=== PATIENT | female | born 1970 | race Two or more races ===

== ENCOUNTER 2023-12-03 06:00 | Day surgery (SDC) | payer OTHER ==
[2023-11-26 10:38] LABS: HEMATOCRIT 36.4 % (36.0-45.00); HEMOGLOBIN 12.3 g/dL (12.0-15.00); MEAN CELL VOLUME 87.9 fL (80.00-100.00); MEAN CORPUSCULAR HEMOGLOBIN 29.6 pg (27.00-32.0); MEAN CORPUSCULAR HGB CONC 33.6 g/dl (32.0-36.0); PLATELET COUNT 289 K/uL (150-450); RED BLOOD COUNT 4.14 M/uL (4.00-6.00)
[2023-11-26 10:55] LABS: URINE APPEARANCE Clear; URINE BILIRRUBIN Negative (NEGATIVE); URINE BLOOD Negative; URINE COLOR Yellow; URINE GLUCOSE Negative (NEGATIVE); URINE KETONE Negative (NEGATIVE); URINE LEUKOCYTE Small; URINE NITRATE Negative; URINE PROTEIN Negative (NEGATIVE); URINE UROBILINOGEN 0.2 E.U./dl
[2023-11-26 11:01] LABS: URINE BACTERIA 26.4 uL (0.0-1933); URINE EPITHELIAL CELLS 12.5 uL (0.0-38.8); URINE RBC 20.6 uL (0.0-20.8)
[2023-11-26 11:10] LABS: URINE CAST 0.15 uL (0.0-1.40)
[2023-11-26 11:14] LABS: INR 1.01; PARTIAL THROMBOPLASTIN TIME 37.4 SECONDS (22.0-34.0); PROTHROMBIN TIME 10.6 SECONDS (9.0-11.5)
[2023-11-26 11:20] LABS: ALBUMIN 3.7 gm/dL (3.4-5.0); BILIRUBIN TOTAL 0.7 mg/dL (0.3-1.2); CALCIUM 9.6 mg/dL (8.5-10.1); CREATININE SERUM 0.57 mg/dL (0.55-1.02); GFR 111.82; GLOBULINA 3.8 G/DL (2.4-3.5); POTASSIUM 4.37 mEq/L (3.5-5.1); TOTAL PROTEIN 7.5 gm/dL (6.4-8.2)
[~2023-12-03 06:00] MED LIST: COZAAR25 MG PO; PAMELOR25 MG PO; PAXIL CR37.5 MG PO; PEPCID40 MG PO; SEROQUEL25 MG PO; WELLBUTRIN SR150 MG PO; buspar PO
[2023-12-03] MEDS ORDERED: CEFAZOLIN SODIUM 1,000 MG VIAL IV ONE (10:30)
[2023-12-03] MEDS ORDERED: LIDOCAINE HCL 1%/EPINEPHRINE 20ML VIAL IJ ONE (10:30)
[2023-12-03] MEDS ORDERED: BUPIVACAINE HCL 30 ML VIAL IV ONE (10:30)
[2023-12-03] MEDS ORDERED: CEPHALEXIN500 MG PO (12:22)
[2023-12-03] MEDS ORDERED: NEURONTIN300 MG PO (12:22)
== END 2023-12-03 14:00 | disposition home or self-care (01) ==
LOC: CIR.AMB 06:00
PROVIDERS: ATTEND Surgery
DX: R15.9 Full incontinence of feces (principal); I10 Essential (primary) hypertension; Z88.5 Allergy status to narcotic agent
CPT/HCPCS: 64581; 95972; C1778

== ENCOUNTER 2023-12-17 08:30 | Day surgery (SDC) | payer OTHER ==
[~2023-12-17 08:30] MED LIST changes: +CEPHALEXIN500 MG PO; +NEURONTIN300 MG PO
[2023-12-17] MEDS ORDERED: CEFAZOLIN SODIUM 1,000 MG VIAL ONE (10:04)
[2023-12-17] MEDS ORDERED: BUPIVACAINE HCL/MPF 0.5% 30ML VIAL ONE (11:26)
[2023-12-17] MEDS ORDERED: LIDOCAINE HCL 1%/EPINEPHRINE 20ML VIAL IJ ONE (11:26)
[2023-12-17] MEDS ORDERED: NEURONTIN300 MG PO (12:24)
== END 2023-12-17 14:45 | disposition home or self-care (01) ==
LOC: CIR.AMB 08:30
PROVIDERS: ATTEND Surgery
DX: R15.9 Full incontinence of feces (principal); I10 Essential (primary) hypertension; F41.9 Anxiety disorder, unspecified
CPT/HCPCS: 64590; 95972; C1767